=== PATIENT | female | born 1955 | race Caucasian/White ===

== ENCOUNTER → 2024-01-19 09:47 | Outpatient (REF) | payer OTHER, SELFPAY | LOC: WDC 09:47 | PROVIDERS: ATTENDING PHYSICIAN Family Medicine | DX: Z12.31 Encounter for screening mammogram for malignant neoplasm of breast (principal); Z13.820 Encounter for screening for osteoporosis; Z78.0 Asymptomatic menopausal state; M85.89 Other specified disorders of bone density and structure, multiple sites | CPT/HCPCS: 77063; 77067; 77080 ==

== ENCOUNTER → 2024-07-05 12:01 | Outpatient (REF) | payer OTHER, SELFPAY | LOC: RAD 12:01 | PROVIDERS: ATTENDING PHYSICIAN Physician Assistant Medical | DX: R05.3 Chronic cough (principal) | CPT/HCPCS: 71046 ==

== ENCOUNTER → 2024-10-29 07:25 | Outpatient (REF) | payer OTHER, SELFPAY ==
[2024-10-29 08:33] LABS: % Eosinophils 3.5 % (0-6); % Immature Granulocytes 0.2 % (0-0.5); % Lymphocytes 33.8 % (20.5-51.1); % Monocytes 9.7 % (1.7-9.3); % Neutrophils 51.8 % (42.2-75.2); Absolute Basophils 0.1 10^3/uL (0-0.2); Absolute Eosinophils 0.2 10^3/uL (0-0.7); Absolute Monocytes 0.6 10^3/uL (0.1-0.6); Hematocrit 44.5 % (37.0-47.0); Hemoglobin 14.5 g/dL (12.0-16.0); Mean Corp Hgb Conc. 32.6 g/dL (33.0-37.0); Mean Corpuscular Hgb 29.5 pg (27.0-31.0); Mean Corpuscular Volume 90.6 fL (81.0-99.0); Mean Platelet Volume 10.7 fL (7.4-10.4); Nucleated Red Blood Cells % 0 %; Platelet Count 216 10^3/uL (130-400); Red Blood Cell Count 4.91 10^6/uL (4.20-5.40); Red Cell Dist. Width 12.1 % (11.5-14.5); White Blood Cell Count 5.8 10^3/uL (4.8-10.8)
[2024-10-29 08:48] LABS: ALT (SGPT) 18 U/L (0-35); AST (SGOT) 23 U/L (14-36); Albumin 4.2 g/dl (3.5-5.0); Alkaline Phosphatase 79 U/L (38-126); Blood Urea Nitrogen 16 mg/dl (7-17); Calcium 9.2 mg/dl (8.4-10.2); Carbon Dioxide 31 mmol/L (22-30); Chloride 103 mmol/L (98-107); Glucose 106 mg/dl (70-99); HDL Cholesterol 80 mg/dl; LDL Cholesterol, Calculated 130 mg/dl; Potassium 4.8 mmol/L (3.5-5.1); Sodium 142 mmol/L (135-145); Total Bilirubin 0.6 mg/dl (0.2-1.3); Total Cholesterol 228 mg/dl (50-199); Total Protein 6.9 g/dl (6.3-8.2); Triglyceride 91 mg/dl (10-149); Very Low Density Lipoprotein 18 mg/dl (0-30); eGFR > 60.00
[2024-10-29 13:39] LABS: Glycohemoglobin (HgbA1c) 5.6 % (4.0-5.6)
== END ==
LOC: REG 07:25
PROVIDERS: ATTENDING PHYSICIAN Family Medicine
DX: R73.03 Prediabetes (principal); E78.2 Mixed hyperlipidemia; I10 Essential (primary) hypertension; M85.80 Other specified disorders of bone density and structure, unspecified site
CPT/HCPCS: 36415; 80053; 80061; 83036; 84443; 85025

== ENCOUNTER → 2024-11-01 11:18 | Outpatient (REF) | payer OTHER, SELFPAY | LOC: RAD 11:18 | PROVIDERS: ATTENDING PHYSICIAN Family Medicine | DX: M25.572 Pain in left ankle and joints of left foot (principal); M25.561 Pain in right knee | CPT/HCPCS: 73564; 73610 ==

== ENCOUNTER → 2025-02-03 13:17 | Outpatient (REF) | payer OTHER, SELFPAY | LOC: WDC 13:17 | PROVIDERS: ATTENDING PHYSICIAN Family Medicine | DX: Z12.31 Encounter for screening mammogram for malignant neoplasm of breast (principal) | CPT/HCPCS: 77063; 77067 ==

== ENCOUNTER → 2025-02-10 09:03 | Outpatient (REF) | payer OTHER, SELFPAY | LOC: WDC 09:03 | PROVIDERS: ATTENDING PHYSICIAN Family Medicine | DX: R92.8 Other abnormal and inconclusive findings on diagnostic imaging of breast (principal) | CPT/HCPCS: 76642 ==

== ENCOUNTER → 2025-11-03 07:57 | Outpatient (REF) | payer OTHER, SELFPAY ==
[2025-11-03 08:50] LABS: Hematocrit 42.4 % (37.0-47.0); Hemoglobin 13.9 g/dL (12.0-16.0); Mean Corp Hgb Conc. 32.8 g/dL (33.0-37.0); Mean Corpuscular Volume 86.9 fL (81.0-99.0); Nucleated Red Blood Cells % 0 %; Platelet Count 223 10^3/uL (130-400); Red Cell Dist. Width 12.9 % (11.5-14.5)
[2025-11-03 09:26] LABS: ALT (SGPT) 17 U/L (0-35); AST (SGOT) 20 U/L (14-36); Albumin 4.0 g/dl (3.5-5.0); Alkaline Phosphatase 90 U/L (38-126); Blood Urea Nitrogen 10 mg/dl (7-17); Calcium 9.4 mg/dl (8.4-10.2); Carbon Dioxide 31 mmol/L (22-30); Chloride 102 mmol/L (98-107); Glucose 102 mg/dl (70-99); HDL Cholesterol 70 mg/dl; LDL Cholesterol, Calculated 61 mg/dl; Potassium 4.5 mmol/L (3.5-5.1); Sodium 138 mmol/L (135-145); Total Protein 7.0 g/dl (6.3-8.2); Uric Acid 5.1 mg/dl (2.5-6.2); Very Low Density Lipoprotein 41 mg/dl (0-30); eGFR > 60.00
[2025-11-03 09:39] LABS: Vitamin D, 25-OH*** 43.1 ng/mL (30-80)
[2025-11-03 11:25] LABS: Glycohemoglobin (HgbA1c) 5.9 % (4.0-5.9)
== END ==
LOC: REG 07:57
PROVIDERS: ATTENDING PHYSICIAN Family Medicine; FAMILY PHYSICIAN Family Medicine
DX: M10.9 Gout, unspecified (principal); I10 Essential (primary) hypertension; R73.03 Prediabetes; E78.2 Mixed hyperlipidemia; E55.9 Vitamin D deficiency, unspecified
CPT/HCPCS: 36415; 80053; 80061; 82306; 83036; 84550; 85025; 85652